=== PATIENT | male | born 1970 | race Caucasian/White ===

== ENCOUNTER 2020-11-22 17:15 | Emergency (ER) | payer OTHER ==
[~2020-11-22] VITALS: Ht 162.6 cm; Wt 72.6 kg
[2020-11-22] MEDS ORDERED: ADULT ASPIRIN R81 MG PO (18:00)
[2020-11-22] MEDS ORDERED: GLIPIZIDE ER10 MG PO (18:00)
[2020-11-22] MEDS ORDERED: LIPITOR10 MG PO (18:00)
[2020-11-22] MEDS ORDERED: OMEPRAZOLE20 MG PO (18:01)
[2020-11-22] MEDS ORDERED: ZESTRIL10 MG PO (18:01)
[2020-11-22] MEDS ORDERED: GLUCOPHAGE500 MG PO (18:01)
--- NOTE | 2020-11-24 11:38 | EKG ---
[facility] [address] [facility] [place], [place] [address] Signed Sinus bradycardia Otherwise normal ECG No previous ECGs available Confirmed by KEILA BLACK DO ([id number]) on 11/24/2020 11:38:38 AM Electronically Signed By: KEILA BLACK DO 11/24/20 1138 PATIENT NAME: MANDUJANOBRI ADRIAN Electrocardiogram DATE OF : 66 PHYSICIAN: KEILA BLACK DO REPORT #: [id number] REPORT IS CONFIDENTIAL AND NOT TO BE RELEASED WITHOUT AUTHORIZATION
== END 2020-11-22 21:29 | disposition home or self-care (01) ==
LOC: ED 17:15
DX: R56.9 Unspecified convulsions (principal); I10 Essential (primary) hypertension; E78.5 Hyperlipidemia, unspecified; E11.9 Type 2 diabetes mellitus without complications; Z87.891 Personal history of nicotine dependence; Z79.899 Other long term (current) drug therapy; Z79.82 Long term (current) use of aspirin; Z79.84 Long term (current) use of oral hypoglycemic drugs
CPT/HCPCS: 70450; 80053; 85025; 85610; 85730; 93005; 93010; 99284-25

== ENCOUNTER 2020-12-30 08:56 | Emergency (ER) | payer OTHER ==
[~2020-12-30] VITALS: Ht 162.6 cm; Wt 74.8 kg
[~2020-12-30 08:56] MED LIST: ADULT ASPIRIN R81 MG PO; GLIPIZIDE ER10 MG PO; GLUCOPHAGE500 MG PO; LIPITOR10 MG PO; OMEPRAZOLE20 MG PO; ZESTRIL10 MG PO
--- NOTE | 2021-01-01 18:04 | EKG ---
[facility] [address] [facility] [place], [place] [address] Signed Normal sinus rhythm Normal ECG Confirmed by AHLLEY BAUGH MD ([id number]) on 01/01/2021 6:04:26 PM Electronically Signed By: HALLEY BAUGH MD 01/01/21 1804 PATIENT NAME: NAZIABRI BOOTHN Electrocardiogram DATE OF : 66 PHYSICIAN: HALLEY BAUGH MD REPORT #: [id number] REPORT IS CONFIDENTIAL AND NOT TO BE RELEASED WITHOUT AUTHORIZATION
== END 2020-12-30 15:19 | disposition home or self-care (01) ==
LOC: ED 08:56
DX: R56.9 Unspecified convulsions (principal); I10 Essential (primary) hypertension; E78.5 Hyperlipidemia, unspecified; E11.9 Type 2 diabetes mellitus without complications; Z87.891 Personal history of nicotine dependence; Z79.899 Other long term (current) drug therapy; Z79.82 Long term (current) use of aspirin; Z79.84 Long term (current) use of oral hypoglycemic drugs
CPT/HCPCS: 51701; 70450; 70496; 70498; 71045; 80053; 81001; 83605; 85025; 85610; 85730; 93005; 93010; 99285-25; J7030; Q9967

== ENCOUNTER 2022-01-22 23:02 | Emergency (ER) | payer OTHER ==
[~2022-01-22] VITALS: Ht 162.6 cm; Wt 83.9 kg
--- OUTSIDE RECORDS SUMMARY | 2022-01-22 23:10 | XMS ---
PreManage Notification: BRI MANDUJANO Security Pattern Hanger Events No recent Security Events currently on file CRITERIA MET - [facility] - 2 Visits in 30 Days CARE PROVIDERS There are no care providers on record at this time. Juan has no Care Guidelines for this patient. [facility] VIS[facility] COUNT (12 MO.) [facility] TOTAL 2 NOTE: Visits indicate total known visits. ED/[facility] VISIT TRACKING (12 MO.) 01/22/2022 23:[address] [facility] [place] TYPE: Emergency COMPLAINT: - UNRESPONSIVE 01/01/2022 09:[address] [facility] [place] TYPE: Emergency COMPLAINT: - SEIZURE DIAGNOSES: - Essential (primary) hypertension - Hyperlipidemia, unspecified - Epilepsy, unspecified, not intractable, without status epilepticus - Type 2 diabetes mellitus without complications - Contact with and (suspected) exposure to COVID-19 - Personal history of nicotine dependence INPATIENT VISIT TRACKING (12 MO.) No inpatient visits to display in this time frame [email or web address]
[2022-01-22] MEDS ORDERED: KEPPRA1000 MG PO (23:23)
--- NOTE | 2022-01-23 12:46 | EKG ---
[facility] [address] [facility] [place], [place] [address] Signed Sinus bradycardia Left axis deviation Abnormal ECG When compared with ECG of 01-JAN-2022 10:06, No significant change was found Confirmed by LENO SALES MD ([id number]) on 01/23/2022 12:46:27 PM Electronically Signed By: LENO SALES MD 01/23/22 1246 PATIENT NAME: BRI MANDUJANO Electrocardiogram DATE OF : 66 PHYSICIAN: LENO SALES MD REPORT #: [id number] REPORT IS CONFIDENTIAL AND NOT TO BE RELEASED WITHOUT AUTHORIZATION
== END 2022-01-23 03:13 | disposition home or self-care (01) ==
LOC: ED 23:02
DX: R55 Syncope and collapse (principal); R56.9 Unspecified convulsions; I10 Essential (primary) hypertension; E11.9 Type 2 diabetes mellitus without complications; K21.9 Gastro-esophageal reflux disease without esophagitis; E78.5 Hyperlipidemia, unspecified; Z87.891 Personal history of nicotine dependence; Z20.822 Contact with and (suspected) exposure to COVID-19
CPT/HCPCS: 70450; 71045; 80053; 84484; 85025; 87502; 93005; 93010; 99285-25; C9803; U0003

== ENCOUNTER 2022-04-21 18:45 | Emergency (ER) | payer OTHER ==
[~2022-04-21] VITALS: Ht 162.6 cm; Wt 88.6 kg
[~2022-04-21 18:45] MED LIST changes: +KEPPRA1000 MG PO
--- NOTE | 2022-04-22 16:10 | EKG ---
[facility] [address] [facility] [place] [address] Signed Sinus bradycardia Left axis deviation Abnormal ECG No previous ECGs available Confirmed by LENO SALES MD ([id number]) on 04/22/2022 4:10:11 PM Electronically Signed By: LENO SALES MD 04/22/22 1610 PATIENT NAME: NAZIABRI DARIAN Electrocardiogram DATE OF : 66 PHYSICIAN: LENO SALES MD REPORT #: [id number] REPORT IS CONFIDENTIAL AND NOT TO BE RELEASED WITHOUT AUTHORIZATION
== END 2022-04-21 20:21 | disposition home or self-care (01) ==
LOC: ED 18:45
DX: R07.89 Other chest pain (principal); I10 Essential (primary) hypertension; E78.5 Hyperlipidemia, unspecified; E11.9 Type 2 diabetes mellitus without complications; G40.909 Epilepsy, unspecified, not intractable, without status epilepticus; K21.9 Gastro-esophageal reflux disease without esophagitis; Z87.891 Personal history of nicotine dependence; Z79.82 Long term (current) use of aspirin; Z79.84 Long term (current) use of oral hypoglycemic drugs; Z79.899 Other long term (current) drug therapy
CPT/HCPCS: 36415; 71045; 80053; 83690; 83735; 84484; 85025; 85610; 93005; 93010; 99285-25

== ENCOUNTER 2022-06-08 18:10 | Emergency (ER) | payer OTHER ==
[~2022-06-08] VITALS: Ht 162.6 cm; Wt 88.5 kg
--- NOTE | 2022-06-09 07:55 | EKG ---
[facility] [place] [facility] [address] [facility] [place], [place] [address] Signed Normal sinus rhythm Normal ECG When compared with ECG of 21-APR-2022 18:43, No significant change was found Confirmed by LENO SALES MD ([id number]) on 06/09/2022 7:55:22 AM Electronically Signed By: LENO SALES MD 06/09/22 0755 PATIENT NAME: NAZIABRI ADRIAN Electrocardiogram DATE OF : 66 PHYSICIAN: LENO SALES MD REPORT #: [id number] REPORT IS CONFIDENTIAL AND NOT TO BE RELEASED WITHOUT AUTHORIZATION
== END 2022-06-08 21:24 | disposition home or self-care (01) ==
LOC: ED 18:10
DX: E11.65 Type 2 diabetes mellitus with hyperglycemia (principal); I10 Essential (primary) hypertension; G40.909 Epilepsy, unspecified, not intractable, without status epilepticus; Z87.891 Personal history of nicotine dependence; Z79.84 Long term (current) use of oral hypoglycemic drugs; Z79.82 Long term (current) use of aspirin; Z79.899 Other long term (current) drug therapy; Z20.822 Contact with and (suspected) exposure to COVID-19
CPT/HCPCS: 36415; 51701; 70450; 71045; 80053; 81003; 82010; 82803; 84484; 85025; 87502; 93005; 93010; 99285-25; C9803; G0480; U0003

== ENCOUNTER 2022-10-19 19:02 | Emergency (ER) | payer OTHER ==
[~2022-10-19] VITALS: Ht 162.6 cm; Wt 97.5 kg
[2022-10-19] MEDS ORDERED: LANTUS100 UNITS/ SUB-Q (19:17)
[2022-10-19] MEDS ORDERED: METFORMIN HCL500 M1 PO (19:18)
--- NOTE | 2022-10-20 22:44 | EKG ---
[facility] [address] [facility] [place] [address] Signed Sinus bradycardia Otherwise normal ECG When compared with ECG of 08-JUN-2022 18:36, No significant change was found Confirmed by Melissa Hernandez MD () on 10/20/2022 10:44:34 PM Electronically Signed By: MELISSA HERNANDEZ MD 10/20/22 2244 PATIENT NAME: NAZIABRI ADRIAN Electrocardiogram DATE OF : 66 PHYSICIAN: MELISSA HERNANDEZ MD REPORT #: [id number] REPORT IS CONFIDENTIAL AND NOT TO BE RELEASED WITHOUT AUTHORIZATION
== END 2022-10-19 22:36 | disposition home or self-care (01) ==
LOC: ED 19:02
DX: R41.82 Altered mental status, unspecified (principal); I10 Essential (primary) hypertension; E11.9 Type 2 diabetes mellitus without complications; E78.5 Hyperlipidemia, unspecified; K21.9 Gastro-esophageal reflux disease without esophagitis; G40.909 Epilepsy, unspecified, not intractable, without status epilepticus; Z87.891 Personal history of nicotine dependence; Z79.899 Other long term (current) drug therapy; Z79.82 Long term (current) use of aspirin; Z79.4 Long term (current) use of insulin
CPT/HCPCS: 36415; 70450; 71045; 80053; 81003; 83735; 84484; 85025; 93005; 93010; 96361; 96374; 99285-25; J2310; J7121